=== PATIENT | female | born 1970 | race Caucasian/White ===

== ENCOUNTER 2016-10-07 09:59 | Emergency (ER) | payer OTHER ==
[~2016-10-07 09:59] MED LIST: DELSYM30 MG/5 M1; FLAGYL PO; MOTRIN600 M2; NO MEDICATIONS; PHENERGAN DM1 ML PO; VIBRAMYCIN100 M1 PO
== END 2016-10-07 11:30 | disposition home or self-care (01) ==
LOC: SED 09:59
DX: H65.02 Acute serous otitis media, left ear (principal); H61.23 Impacted cerumen, bilateral; F17.210 Nicotine dependence, cigarettes, uncomplicated
CPT/HCPCS: 99282